=== PATIENT | male | born 1940 | race Caucasian/White ===

== ENCOUNTER 2017-06-25 06:54 | Inpatient (IN) ==
[2017-06-18 13:21] LABS: Appearance,Urine CLEAR; Bilirubin,Urine NEG (NEG); Color,Urine YELLOW; Glucose,Urine (UA) NEGATIVE (NEG); Leukocyte Esterase,Urine NEG /uL (NEG); Nitrate,Urine NEG (NEG); Protein,Urine NEG (NEG); Specific Gravity,Urine 1.015 (1.000-1.035); Urine Blood NEG mg/dL (<0.03); Urobilinogen,Urine NEG (NEG)
[2017-06-18 14:01] LABS: Basophils # (Auto) 0 K/mcL (0.0-0.3); Basophils % (Auto) 0.4 % (0.0-2.0); Eosinophils # (Auto) 0.2 K/mcL (0.0-0.7); Eosinophils % (Auto) 2.6 % (0.0-7.0); Granulocytes % (Auto) 63.4 % (38.0-78.0); Lymphocytes # (Auto) 1.8 K/mcL (1.5-4.8); Lymphocytes % (Auto) 25.8 % (15.5-49.0); Mean Cell Volume 92.3 fL (80.0-100.0); Mean Corpuscular HGB Conc 33.7 g/dL (31.0-36.0); Mean Corpuscular Hemoglobin 31.1 pg (26.0-34.0); Monocytes # (Auto) 0.5 K/mcL (0.1-0.9); Monocytes % (Auto) 7.8 % (1.0-12.0); Platelet Count 264 K/mcL (140-440); RBC 4.51 M/mcL (4.50-5.90); Red Cell Distribution Width 13.7 % (11.5-14.5)
[2017-06-18 14:05] LABS: Blood Urea Nitrogen 15 mg/dl (8-23)
[~2017-06-25 06:54] MED LIST: CELECOXIB 200 MG CAPSULE PO SCH; KETOROLAC 30 MG, ROPIVACAINE HCL/PF 49.5 ML, EPINEPHrine 0.5 MG, 0.9 % SODIUM CHLORIDE ... IJ SCH; PREGABALIN 75 MG CAPSULE PO SCH; ceFAZolin 1 GM VIAL IV SCH; oxyCODONE 10 MG TAB.ER.12H PO SCH
[2017-06-25] MEDS ORDERED: PROPOFOL 200 MG/20 ML VIAL IV ONE (09:45)
[2017-06-25] MEDS ORDERED: ePHEDrine 50 MG/ML AMPUL IV ONE (09:45)
[2017-06-25] MEDS ORDERED: GLYCOPYRROLATE 0.2 MG/ML VIAL IV ONE (09:45)
[2017-06-25] MEDS ORDERED: ROPIVACAINE HCL/PF 20 ML VIAL IJ ONE (09:45)
[2017-06-25] MEDS ORDERED: LIDOCAINE HCL/PF 100 MG/5 ML SYRINGE IV ONE (09:45)
[2017-06-25] MEDS ORDERED: DEXAMETHASONE 10 MG/ML VIAL IV ONE (09:45)
[2017-06-25] MEDS ORDERED: ONDANSETRON 4 MG/2 ML VIAL IV ONE (09:45)
[2017-06-25] MEDS ORDERED: MIDAZOLAM 5 MG/5 ML VIAL IV ONE (09:45)
[2017-06-25] MEDS ORDERED: TRANEXAMIC ACID 1,000 MG/10 ML VIAL IV ONE (09:45)
[2017-06-25] MEDS ORDERED: PROMETHAZINE 25 MG/ML VIAL IV PRN (10:58)
[2017-06-25] MEDS ORDERED: BENZOCAINE/MENTHOL 1 LOZENGE PO PRN ×2 (10:58→11:40)
[2017-06-25] MEDS ORDERED: MEPERIDINE 25 MG/ML SYRINGE IV PRN (10:58)
[2017-06-25] MEDS ORDERED: NALOXONE HCL 0.4 MG/ML VIAL IV PRN (10:58)
[2017-06-25] MEDS ORDERED: PROMETHAZINE 25 MG/ML VIAL IM PRN (10:58)
[2017-06-25] MEDS ORDERED: ePHEDrine 50 MG/ML AMPUL IV PRN (10:58)
[2017-06-25] MEDS ORDERED: diphenhydrAMINE 50 MG/ML VIAL IV PRN (10:58)
[2017-06-25] MEDS ORDERED: IPRATROPIUM/ALBUTEROL 3 ML AMPUL.NEB NEB PRN (10:58)
[2017-06-25] MEDS ORDERED: ONDANSETRON 4 MG/2 ML VIAL IV PRN ×2 (10:58→11:40)
[2017-06-25] MEDS ORDERED: METHOCARBAMOL 1,000 MG/10 ML VIAL IV PRN (10:58)
[2017-06-25] MEDS ORDERED: METOPROLOL TARTRATE 5 MG/5 ML VIAL IV PRN (10:58)
[2017-06-25] MEDS ORDERED: fentaNYL 100 MCG/2 ML VIAL IV PRN (10:58)
[2017-06-25] MEDS ORDERED: FLUMAZENIL 0.1 MG/ML ML IV PRN (10:58)
[2017-06-25] MEDS ORDERED: ATROPINE SULFATE 0.4 MG/ML VIAL IV PRN (10:58)
[2017-06-25] MEDS ORDERED: ACETAMINOPHEN 1,000 MG/100 ML BOTTLE IV ONE (10:58)
[2017-06-25] MEDS ORDERED: LACTATED RINGERS 1,000 ML IV SCH (11:00)
[2017-06-25] MEDS ORDERED: FLEETS ADULT ENEMA PR PRN (11:40)
[2017-06-25] MEDS ORDERED: BISACODYL 10 MG SUPP.RECT PR PRN (11:40)
[2017-06-25] MEDS ORDERED: POLYETHYLENE GLYCOL 3350 17 GM PACKET PO PRN (11:40)
[2017-06-25] MEDS ORDERED: TRANEXAMIC ACID 1,000 MG/10 ML VIAL IV SCH (11:40)
[2017-06-25] MEDS ORDERED: HYDROmorphone 2 MG/ML SYRINGE IV PRN (11:40)
[2017-06-25] MEDS ORDERED: MAGNESIUM HYDROXIDE 30 ML ORAL.SUSP PO PRN (11:40)
--- NOTE | 2017-06-25 11:40 | Brief Operative Note ---
Date of procedure: 06/25/17 Pre-op diagnosis: R knee severe DJD Post-op diagnosis: same Procedure: Right robotic assisted total knee arthroplasty Grafts/Implants: Yes (Thais 7 CR femur, 7 tibia, 11 insert, 39 patella) Anesthesia: spinal, GLMA Findings: severe arthritis Complications: none Surgeon: Pablo Young Bullion Weigher: Saji Crocker Estimated blood loss (cc): 30 Specimens Removed/Pathology: none sent Condition: stable Disposition: PACU
[2017-06-25] MEDS: KETOROLAC 15 MG/ML VIAL IV SCH ×3 (12:12→23:48)
[2017-06-25] MEDS: 0.9 % SODIUM CHLORIDE 1,000 ML IV SCH ×2 (12:30→23:47)
--- NOTE | 2017-06-25 12:32 | XRay Report ---
CLINICAL INFORMATION: Postop total knee prostheses COMPARISON: None. FINDINGS: Total knee prostheses is anatomically aligned. No osseous abnormalities. Periarticular gas and soft tissue swelling seen as expected. IMPRESSION: Negative Interpreted and Authenticated by: Billy Hill 06/25/17
--- NOTE | 2017-06-25 12:49 | Operative Note ---
DATE OF OPERATION: 06/25/2017 PREOPERATIVE DIAGNOSIS: Right knee severe osteoarthritis. POSTOPERATIVE DIAGNOSIS: Right knee severe osteoarthritis. PROCEDURE PERFORMED: Right robotic-assisted total knee arthroplasty using the Thais triathlon cruciate retaining size 7 femoral component, size 7 tibial baseplate, a 39 mm patellar button with an 11 mm X3 tibial insert using VANDOLAY robotic assistance. SURGEON: Pablo Young M.D. PALLETIZER: Ganesh Crocker PA-C. ANESTHESIA: Spinal plus general. DRAINS: None. SPECIMENS: Bone cuts, which were discarded. BLOOD LOSS: Less than 30 mL. COMPLICATIONS: None. POSTOPERATIVE CONDITION: Stable. INDICATIONS FOR SURGERY: This is a 77-year-old male with longstanding progressive worsening right knee pain. Radiographs showed severe [place] osteoarthritis. FINDINGS AT SURGERY: Findings at surgery were the same. Post implantation showed good overall limb alignment, patellar tracking and stability. PROCEDURE IN DETAIL: The patient had been seen preoperatively. Informed consent had been obtained after discussion of risks and benefits of surgery. Risks including, but not limited to, bleeding, possibly requiring transfusion; infection, possibly requiring implant removal and prolonged IV antibiotics; injury to nerves, blood vessels, and other surrounding structures; anesthetic risks; incomplete or no resolution of symptoms; stiffness; pain; instability; clunking; DVT and pulmonary embolus risks; and the possibility of needing further revision surgery. He understood these risks and wished to proceed. Correct operative site was marked and then patient was taken to the operating room after spinal anesthesia was given. LMA general was then given, and the right lower extremity was then carefully prepped and draped in normal sterile fashion, and a time-out was performed verifying patient name, operative site, and plan. Esmarch was used to exsanguinate the extremity and tourniquet was inflated. A midline incision was made with a scalpel through skin and subcutaneous tissue. Irrisept was irrigated and then a medial parapatellar arthrotomy made. Subperiosteal exposure was done of the anterior medial tibia. We placed a femoral checkpoint and a tibial checkpoint. We made two stab incisions over the femur and two over the tibia and placed two bicortical pins for each. We then connected to the arrays. We did our hip center of rotation check, as well as the medial and lateral malleoli and then our double-checks of the femoral and tibial checkpoints. Blue probe was then used to do our cartilage mapping. We then removed osteophytes and then checked our flexion and extension gaps. We ended up putting in 2 degrees of varus in the tibia and 1 degree on the femur to get symmetrical 17 mm gaps. We then went ahead and used the robotic arm to make our bone cuts. The tibia rotation was marked and then a tibial trial was pinned and prepared. The femur was elevated and posterior osteotome and curet were used to remove large posterior osteophytes. We then placed the femoral trial, pinned this into place, and drilled our peg holes. We trialed with a 9 insert which went in fairly easily. We then put the knee into extension. Patella was prepared freehand and then sized to a 39 which was medialized. We then had a very limited lateral facetectomy. We checked our patellar tracking which was good. We went ahead and removed the trial implants while definitive implants were opened. We irrigated first with Irrisept. After a minute, pulse lavaged and then CO2 gun used to clean the cancellous bone surfaces. We then cemented the tibia followed by the femur. Excess cement removed. The 9 insert trial was placed. The knee was taken into extension and then the patellar button was cemented. Irrisept was used to fill the joint. We then used pain cocktail to inject the pericapsular and subcutaneous tissues. Once cement was fully hardened, we pulse lavaged with saline, flexed the knee up and removed the trial insert. We did check our knee extension. There was a few degrees of hyperextension, so we went ahead and trialed an 11 insert. This had exactly 0 on extension so we opened an 11 insert. We injected the posterior capsule with pain cocktail and then irrigated with Irrisept. The insert was impacted. We then pulse lavaged copiously with saline. The check points were removed. Interrupted [id number] #2 FiberWire was used around the superior quadrant of the patella, interrupted [id number] #1 FiberWire around the inferior quadrant, and running #1 Vicryl for patellar tendon and quad tendon. Final Irrisept irrigation was done, after a minute final pulse lavage, and then 2-0 Monocryl for subcutaneous and te for skin. The pins were removed for the arrays and te and Xeroform placed. Sterile dressing was applied. Tourniquet was released. The patient was awakened, extubated, and transferred to recovery in stable condition. BJB:raul Job ID: [id number] Doc ID: [id number] Pablo Young MD
[2017-06-25] MEDS: 0.9 % SODIUM CHLORIDE 10 ML SYRINGE IV SCH ×2 (13:12→23:47)
[2017-06-25] MEDS: ceFAZolin 1 GM VIAL IV SCH (17:13)
[2017-06-25] MEDS ORDERED: SENNOSIDES 1 TABLET PO SCH (21:00)
[2017-06-25] MEDS: DOCUSATE SODIUM 100 MG CAPSULE PO SCH (21:59)
[2017-06-25] MEDS: oxyCODONE/APAP 5/325MG TABLET PO PRN (21:59)
[2017-06-25] MEDS: ASPIRIN 325 MG ENTERIC COATED TABLET PO SCH (21:59)
[2017-06-26] MEDS: ceFAZolin 1 GM VIAL IV SCH (01:48)
[2017-06-26] MEDS: oxyCODONE/APAP 5/325MG TABLET PO PRN ×2 (04:22→14:33)
[2017-06-26] MEDS: KETOROLAC 15 MG/ML VIAL IV SCH ×2 (05:49→12:06)
[2017-06-26] MEDS: 0.9 % SODIUM CHLORIDE 10 ML SYRINGE IV SCH ×2 (05:49→14:33)
[2017-06-26] MEDS: 0.9 % SODIUM CHLORIDE 1,000 ML IV SCH (06:34)
--- NOTE | 2017-06-26 07:48 | Discharge Summary ---
Providers - Providers Patient information: Note initiated : 06/26/17 at 7:43 am Service Date, if different from initiated Date: [] Patient: Benito Car 77 y/o M admitted on 06/25/17 for KAPIL Robotic Right Total Knee Arthroplasty. Chief Complaint: [] Discharge date: 06/26/17 Hospitalization Hospital course: Pt was admitted for a Total knee arthroplasty. He underwent the procedure on the day of admission and discharged post-op day 1. He was given aspirin for DVT prophylaxis and a rx for out-pt PT. f/u at [facility] in 2 weeks. Discharge diagnosis: R knee osteoarthrosis Exam - Exam Incision healing: Yes Clean and dry: Yes Weight bearing status: as tolerated Ortho Discharge - TKA - Patient Instructions Diet: Regular Diet Activity: activity as tolerated Total Knee Protocol: For Total Knee: Start ROM TREVER with stationary bike or rocking chair. Work on gaining full extension of knee. Posterior dislocation precautions provided. Hip abductor strengthening and gait training instructions provided. Apply Cryocuff as instructed. Dressing Care: May shower in 2 days - Follow Up Plan Disposition: Home, Self-Care Prognosis: Good Rehab Potential: Good Overall status at discharge: patient is progressing back to baseline - Orders For Discharge Prescriptions: Aspirin [Ecotrin] 325 mg PO BID #30 tab.ec Hydrocodone/APAP 7.5/325Mg [[place] 7.5/325Mg] 1 - 2 tab PO Q4HP PRN #60 tab PRN Reason: Pain Pending Studies Resuscitation Status Full Code Diet Regular Diet Start FriJun 25 1403 Aspirin (Ecotrin) 325 mg PO BID [facility] Last Admin: 06/25/17 21:59 Dose: 325 mg Docusate Sodium (Colace) 100 mg PO BID [facility] Last Admin: 06/25/17 21:59 Dose: 100 mg Ferrous Sulfate (Ferrous Sulfate) 650 mg PO [facility] Last Admin: 06/26/17 07:20 Dose: 650 mg Sodium Chloride (Sodium Chloride 0.9%) 1,000 mls @ 100 mls/hr IV .Q10H [facility] Last Admin: 06/26/17 06:34 Dose: Admin: 06/25/17 23:47 Dose: Admin: 06/25/17 12:30 Dose: 100 mls/hr Ketorolac Tromethamine (Toradol) 15 mg IV Q6 KRISTY Stop: 06/27/17 06:01 Last Admin: 06/26/17 05:49 Dose: 15 mg Admin: 06/25/17 23:48 Dose: 15 mg Admin: 06/25/17 17:56 Dose: 15 mg Admin: 06/25/17 12:12 Dose: 15 mg Oxycodone/Acetaminophen (Percocet 5-325 Mg) 0 tab PO Q4HP PRN PRN Reason: PAIN LEVEL 3-6 Last Admin: 06/26/17 04:22 Dose: 1 tab Admin: 06/25/17 21:59 Dose: 1 tab Senna (Senokot) 2 tab PO HS KRISTY Last Admin: 06/25/17 21:59 Dose: 2 tab Sodium Chloride (Saline Flush) 10 ml IV Q8 [facility] Last Admin: 06/26/17 05:49 Dose: 10 ml Admin: 06/25/17 23:47 Dose: 10 ml Admin: 06/25/17 13:12 Dose: Not Given Shift Summary 06/26/17 04:24 Shift Summary by Sabrina Ch Patient slept off and on this shift. Medicated with oxycodone twice this shift with good effect. Ambulated to the ray twice total 880 ft. Patient eating and drinking well. IV saline locked. Patient unable to empty completely his bladder. Voided 500 and 460 mls. PVR 400 and 268 respectively. Last bladder scanned at 0400H. Right knee dressing dry and intact. Cryo-cuff applied. Foot pumps on last night. VSS. Initialized on 06/26/17 04:24 - END OF NOTE
[2017-06-26] MEDS ORDERED: FERROUS SULFATE 325 MG TABLET PO SCH (08:00)
[2017-06-26] MEDS: ASPIRIN 325 MG ENTERIC COATED TABLET PO SCH (08:35)
[2017-06-26] MEDS: DOCUSATE SODIUM 100 MG CAPSULE PO SCH (08:35)
[2017-06-26] MEDS ORDERED: MAGNESIUM OXIDE 400 MG TABLET PO SCH (09:00)
[2017-06-26] MEDS ORDERED: ATORVASTATIN 20 MG TABLET PO SCH (09:00)
[2017-06-26] MEDS ORDERED: CAPTOPRIL 12.5 MG TABLET PO SCH (09:00)
[2017-06-26] MEDS ORDERED: MULTIVIT,THER IRON,CA,FA & MIN 1 TABLET PO SCH (09:00)
[2017-06-26] MEDS ORDERED: HYDROCHLOROTHIAZIDE 25 MG TABLET PO SCH (09:00)
[2017-06-26] MEDS ORDERED: 0.9 % SODIUM CHLORIDE 500 ML IV ONE (09:22)
[2017-06-26 11:19] LABS: Basophils # (Auto) 0 K/mcL (0.0-0.3); Basophils % (Auto) 0.4 % (0.0-2.0); Eosinophils # (Auto) 0.1 K/mcL (0.0-0.7); Eosinophils % (Auto) 1.3 % (0.0-7.0); Granulocytes % (Auto) 77.1 % (38.0-78.0); Lymphocytes # (Auto) 1.1 K/mcL (1.5-4.8); Lymphocytes % (Auto) 12.4 % (15.5-49.0); Mean Cell Volume 92.8 fL (80.0-100.0); Mean Corpuscular HGB Conc 33.8 g/dL (31.0-36.0); Mean Corpuscular Hemoglobin 31.4 pg (26.0-34.0); Monocytes # (Auto) 0.8 K/mcL (0.1-0.9); Monocytes % (Auto) 8.8 % (1.0-12.0); Platelet Count 204 K/mcL (140-440); RBC 3.55 M/mcL (4.50-5.90); Red Cell Distribution Width 13.4 % (11.5-14.5)
[2017-06-26 11:37] LABS: ALT/SGPT 8 U/l (0-40); Albumin 3.2 gm/dL (3.2-5.2); Albumin/Globulin Ratio 1.6 (1.0-2.3); Alkaline Phosphatase 46 U/L (39-117); Blood Urea Nitrogen 15 mg/dl (8-23)
--- NOTE | 2017-06-26 16:36 | Internal Medicine Consult Note ---
Medical - CN: [facility] - Data of Consult Patient: new to practice Consult date: 06/26/17 Requesting Physician: Pablo Young - Consult Narrative History of present illness: Mr. Car is a 77 year old man with a history last year of transient atrial fibrillation, as well as bilateral PE. He also has a history of hypertension and hyperlipidemia. He presented yesterday for right total knee arthroplasty. He did well after surgery, and discharge was planned for today. This morning, he was sitting in a chair at the bedside, when he felt nauseated. He leaned forward, and then lost consciousness. This event was witnessed by his . She called for help, and by the time the nurse came in, the patient was starting to arouse. Afterwards, vital signs initially low blood pressure, but quickly normalized. Over the next 6 or so hours afterwards, the patient says he has felt fine. He specifically denies any fever or chills, chest pain or palpitations, shortness of breath, nausea or vomiting. He says he has occasional headaches, but not recently. He denies new eye or ear symptoms, sore throat or cough, abdominal pain, dysuria. He denies recently being sedentary, or having any leg swelling at home. Medical history: Hypertension Episode of atrial fibrillation last year, followed by diagnosis of bilateral PE. Treated for 6 months with Eliquis. Surgical history: Left hip replacement, left knee replacement, tonsillectomy. Medications: Magnesium oxide 400 mg daily Metoprolol 25 mg half tab daily Hydrochlorthiazide 25 mg daily Captopril 25 mg Lipitor 20 mg Allergies: No known drug allergies Family history: Mother and sister with pancreatic cancer. Father in his 80s of unknown causes. Social history: Patient drinks about 3 beers per week. He quit smoking approximately 40 years ago. He does not use drugs. He is and lives with his . CC: Pablo Young Medical - CN: Meds Home Medications Medication Instructions Recorded Confirmed Type Atorvastatin [Lipitor] 20 mg PO DAILY 06/18/17 06/18/17 History Captopril [Capoten] 25 mg PO DAILY 06/18/17 06/18/17 History Hydrochlorothiazide [Oretic] 25 mg PO DAILY 06/18/17 06/18/17 History Magnesium Oxide [Magnesium] 400 mg PO DAILY 06/18/17 06/18/17 History Multivit,Ther Iron,Ca,FA & Min 1 tab PO DAILY 06/18/17 06/18/17 History [Multivitamin W/Minerals] Apixaban [Eliquis] 5 mg PO BID #28 tab 06/26/17 Rx Hydrocodone/APAP 7.5/325Mg [[place] 1 - 2 tab PO Q4HP PRN #60 tab 06/26/17 Rx 7.5/325Mg] Allergies Allergy/AdvReac Type Severity Reaction Status Date / Time No Known Drug Allergies Allergy Unverified 06/18/17 11:01 Medical - CN: Exam - Constitutional Vitals: Temp Pulse Resp BP Pulse Ox 97.9 F 84 18 121/73 96 06/26/17 12:16 06/26/17 04:00 06/26/17 12:16 06/26/17 12:16 06/26/17 12:16 Medical - CN: Result - Labs CBC & Chem 7: 06/26/17 10:45 06/26/17 10:45 Labs: Short CBC 06/26/17 06/26/17 Range/Units 05:17 10:45 WBC 9.0 (4.5-11.0) K/mcL Hgb 11.5 L 11.1 L (13.5-16.5) g/dL Hct 32.9 L (41.0-55.0) % Plt Count 204 (140-440) K/mcL BMP 06/26/17 10:45 Sodium 127 L Potassium 3.9 Chloride 91 L Carbon Dioxide 23 BUN 15 Creatinine 0.9 Glucose 117 H Calcium 8.1 L Cardiac Enzymes 06/26/17 Range/Units 09:25 Troponin T < 0.01 (0-0.03) ng/ml Liver Function 06/26/17 Range/Units 10:45 Total Bilirubin 0.6 (0.0-1.0) mg/dL AST 18 (0-37) U/l ALT 8 (0-40) U/l Alkaline Phosphatase 46 (39-117) U/L Albumin 3.2 (3.2-5.2) gm/dL EKG: Shows what appears to be normal sinus rhythm at a rate of 73, however there are frequent pacemaker spikes. There is first-degree AV block. And nonspecific intraventricular conduction delay. Compared to EKG from May: Pacemaker spikes are much more evident now, but otherwise no significant change. Medical - CN: A/P (1) Syncope Status: Acute (2) History of atrial fibrillation Status: Resolved (3) History of pulmonary embolism Status: Chronic (4) Hypertension Status: Chronic (5) Hyperlipidemia Status: Chronic - Narrative A/P Narrative: #1. Syncope. Patient had a single syncopal episode today, while sitting in a chair. He felt nauseated just prior, and leaned forward, and then lost consciousness briefly. His witnessed the event. He arouses quickly, and then says he felt fine. I believe this was most likely a vasovagal episode, due to pain medications and other effects of anesthesia. I discussed with the patient that we could watch him overnight on telemetry, but he was quite insistent on going home. We discussed that since he has a not so distant history of PE, that he is probably at increased risk for PE. I suggested that we discontinue his aspirin, and instead resume Eliquis 5 mg twice daily. This will serve to prevent DVT from his knee surgery, as well as to treat him if he were to have any residual PE. -I strongly encouraged him to get back in touch with his doctor or the ER immediately if he has any further syncopal events, chest pain, shortness of breath, diaphoresis or other unusual events. #2. History of hypertension. Blood pressure is well controlled. Continue same. Next 3. CODE STATUS: Full code. 4. DVT prophylaxis: As above. 5. Orthopedic. Status post robotic assisted right total knee arthroplasty. She appears to be doing well, and will follow-up for physical therapy and surgical follow-up, as scheduled. Approximately 45 minutes was spent today, reviewing the patient's case with Dr. Young, reviewing the patient's records, interviewing and examining the patient, and writing orders
== END 2017-06-26 17:30 | disposition home or self-care (01) | DRG 470 ==
LOC: MEDSUR 06:54
PROVIDERS: ADMIT Orthopaedic Surgery; ATTEND Orthopaedic Surgery